=== PATIENT | male | born 1965 | race Caucasian/White ===

== ENCOUNTER → 2021-07-18 | Outpatient (CLI) | payer BC ==
[~2021-07-18] MED LIST: HYDROCODON-ACE1 EAC2 PO; IBUPROFEN600 MG PO; LISINOPRIL20 MG PO; OMEPRAZOLE20 MG PO; RELAFEN750 MG PO; TESSALON PERLE100 MG PO
[2021-07-18 09:20] LABS: HEMOGLOBIN 14.8 gm/dl (14.0-17.5); RED BLOOD COUNT 4.98 M/UL (4.20-5.50)
[2021-07-18 09:41] LABS: BUN/CREATININE RATIO 17 (0-10)
== END ==
LOC: OPSV2 07:58 → EDSTATUS 08:00 → OPSV2 08:00
PROVIDERS: Orthopaedic Surgery
DX: Z01.818 Encounter for other preprocedural examination (principal); M17.0 Bilateral primary osteoarthritis of knee
CPT/HCPCS: 36415; 80048; 83036; 85027; 93005

== ENCOUNTER 2021-08-22 11:09 | Emergency (ER) | payer BC ==
[~2021-08-22 11:09] MED LIST changes: +CYCLOBENZAPRINE10 MG PO; +ELIQUIS2.5 MG PO; +ENDOCET 7.5-321 EACH PO; +NORVASC10 MG PO; +TYLENOL EXTRA500 MG PO; +ZOFRAN 4 MG TAB4 MG PO
[2021-08-22 12:24] LABS: HEMOGLOBIN 11.6 gm/dl (14.0-17.5); RED BLOOD COUNT 3.9 M/UL (4.20-5.50); WHITE BLOOD COUNT 9.5 K/UL (4.5-11.0)
[2021-08-22 12:57] LABS: BUN/CREATININE RATIO 18 (0-10)
== END 2021-08-22 15:55 | disposition home or self-care (01) ==
LOC: ER1 11:09
PROVIDERS: Student in an Organized Health Care Education/Training Program
DX: R55 Syncope and collapse (principal); I10 Essential (primary) hypertension; E78.5 Hyperlipidemia, unspecified
CPT/HCPCS: 70450; 71045; 80053; 82550; 82553; 84484; 85025; 99285; Q9967